=== PATIENT | female | born 1965 | race Two or more races ===

== ENCOUNTER 2022-04-12 11:35 | Emergency (ER) | payer OTHER ==
[~2022-04-12] VITALS: Ht 162.6 cm; Wt 116.6 kg
[2022-04-12] MEDS ORDERED: ZESTRIL10 M1 PO (11:47)
[2022-04-12] MEDS ORDERED: SINGULAIR10 MG PO (11:48)
[2022-04-12] MEDS ORDERED: TOPROL XL25 M1 PO (11:49)
[2022-04-12] MEDS ORDERED: PROAIR RESPICL90 MCG IH (11:49)
== END 2022-04-12 15:21 | disposition home or self-care (01) ==
LOC: ER 11:35
DX: M54.89 Other dorsalgia (principal); I10 Essential (primary) hypertension; Z88.8 Allergy status to other drugs, medicaments and biological substances